=== PATIENT | female | born 1980 | race Caucasian/White ===

== ENCOUNTER 2022-09-07 20:12 | Emergency (ER) | payer MEDICAID ==
[~2022-09-07] VITALS: Ht 152.4 cm; Wt 54.4 kg
== END 2022-09-07 21:45 | disposition home or self-care (01) ==
LOC: ED 20:12
DX: R21 Rash and other nonspecific skin eruption (principal); Z88.1 Allergy status to other antibiotic agents

== ENCOUNTER 2022-09-12 13:40 | Emergency (ER) | payer MEDICAID ==
[~2022-09-12] VITALS: Ht 149.8 cm; Wt 56.7 kg
== END 2022-09-12 16:50 | disposition home or self-care (01) ==
LOC: ED 13:40
DX: R21 Rash and other nonspecific skin eruption (principal); Z88.1 Allergy status to other antibiotic agents

== ENCOUNTER 2023-03-04 04:48 | Emergency (ER) | payer MEDICAID ==
[~2023-03-04] VITALS: Wt 50.8 kg
[2023-03-04] MEDS ORDERED: CEPHALEXIN500 M1 PO (05:18)
== END 2023-03-04 05:25 | disposition home or self-care (01) ==
LOC: ED 04:48
DX: R23.4 Changes in skin texture (principal); Z88.1 Allergy status to other antibiotic agents; F15.10 Other stimulant abuse, uncomplicated